=== PATIENT | male | born 1935 ===

== ENCOUNTER 2020-04-01 14:57 | Inpatient (IN) | payer MEDICARE, BC ==
[~2020-04-01] VITALS: Ht 182.8 cm; Wt 87.5 kg
[2020-04-01] MEDS ORDERED: MELATONIN 3 MG TABLET PO PRN (18:15)
[2020-04-01] MEDS ORDERED: polyethylene glycoL POWDER 17 GM (MIRALAX) PACK PO PRN (18:15)
[2020-04-01] MEDS ORDERED: ANTACID SUSP 30 ML UDC (MYLANTA) PO PRN (18:15)
[2020-04-01] MEDS ORDERED: hydrALAZINE (APESOLINE) 20 MG/ML VIAL IV PRN (18:15)
[2020-04-01] MEDS ORDERED: ACETAMINOPHEN 325 MG TABLET PO PRN (18:15)
[2020-04-01] MEDS ORDERED: ONDANSETRON 4 MG (ZOFRAN) ORAL DISSOLVE TAB PO PRN (18:15)
[2020-04-01] MEDS ORDERED: ENOXAPARIN 40 MG/0.4 ML (LOVENOX) SYR SC SCH (18:15)
[2020-04-01] MEDS ORDERED: BISACODYL 10 MG SUPP (DULCOLAX) PR PRN (18:15)
[2020-04-01] MEDS ORDERED: ENOXAPARIN 40 MG/0.4 ML (LOVENOX) SYR ONE (20:50)
[2020-04-01 20:52] VITALS: BP 150/64
[2020-04-01] MEDS: inSUlin ASPART (NovoLOG) 1 UNIT/0.01 ML (CHARGE PER UNIT) SC SCH (21:02)
[2020-04-02] VITALS (16 sets, daily range): BP systolic 130–168; BP diastolic 47–73
[2020-04-02 05:07] LABS: BASOPHILS % (AUTO) 0 % (0-10); EOSINOPHILS % (AUTO) 0 % (0-10); HEMATOCRIT 34 % (40-54); HEMOGLOBIN 11.6 g/dL (13.3-17.7); LYMPHOCYTES # (AUTO) 0.2 10^3/uL (1.0-4.0); LYMPHOCYTES % (AUTO) 3 % (12-44); MEAN CORPUSCULAR HEMOGLOBIN 33 pg (25-34); MEAN CORPUSCULAR HGB CONC 34 g/dL (32-36); MEAN CORPUSCULAR VOLUME 96 fL (80-99); MEAN PLATELET VOLUME 10.2 fL (9.0-12.2); MONOCYTES # (AUTO) 0.3 10^3/uL (0.0-1.0); MONOCYTES % (AUTO) 4 % (0-12); NEUTROPHILS # (AUTO) 7.1 10^3/uL (1.8-7.8); NEUTROPHILS % (AUTO) 92 % (42-75); PLATELET COUNT 215 10^3/uL (130-400); WHITE BLOOD COUNT 7.7 10^3/uL (4.3-11.0)
[2020-04-02 05:28] LABS: ALANINE AMINOTRANSFERASE 33 U/L (0-55); ALBUMIN 3.3 GM/DL (3.2-4.5); ALKALINE PHOSPHATASE 73 U/L (40-136); BILIRUBIN,TOTAL 0.8 MG/DL (0.1-1.0); BUN/CREATININE RATIO 33; CALCIUM 9.1 MG/DL (8.5-10.1); CARBON DIOXIDE 19 MMOL/L (21-32); CHLORIDE 110 MMOL/L (98-107); CREATININE SERUM 1.01 MG/DL (0.60-1.30); GFR ESTIMATED > 60; GLUCOSE 158 MG/DL (70-105); POTASSIUM 3.9 MMOL/L (3.6-5.0); SODIUM 143 MMOL/L (135-145)
[2020-04-02 05:30] LABS: BAND NEUTROPHILS 2 %; LYMPHOCYTES % (MANUAL) 2 %; MONOCYTES % (MANUAL) 3 %; NEUTROPHILS % (MANUAL) 93 %; RBC MORPH NORMAL
[2020-04-02] MEDS: inSUlin ASPART (NovoLOG) 1 UNIT/0.01 ML (CHARGE PER UNIT) SC SCH (06:13)
[2020-04-02] MEDS: ENOXAPARIN 40 MG/0.4 ML (LOVENOX) SYR SC SCH (06:13)
[2020-04-02] MEDS ORDERED: FLU QUAD HIGH DOSE 240 MCG/0.7 ML 2020-21 (FLUZONE) IM ONE (06:45)
--- NOTE | 2020-04-02 11:29 | Occupational Therapy Eval ---
OT Evaluation-General/PLF Medical Diagnosis Admission Date Apr 01, 2020 at 20:31 Medical Diagnosis: COVID+, elevated triponin Onset Date: Apr 01, 2020 Therapy Diagnosis Therapy Diagnosis: decreased ADL status, weakness Precautions Precautions/Isolations: Airborne Isolation, Droplet Isolation, Standard Precautions Referral Physician: Marcelle Referral Reason: Evaluation/Treatment Medical History Additional Medical History ER secondary to SOA/weakness/fever Reviewed History: Yes Social History Home: Multilevel Current Living Status: Significant Other Entry Into Home: Stairs With Railing Steps Into Home: 3 ADL-Prior Level of Function SCALE: Activities may be completed with or without assistive devices. 2-Xeecbsdyji-kjzxlad completes the activity by him/herself with no assistance from a helper. 5-Set-up or Clean-up Assistance-helper sets up or cleans up; patient completes activity. [place] assists only prior to or following the activity. 4-Supervision or Touching Assistance-helper provides verbal cues and/or touching/steadying and/or contact guard assistance as patient completes activity. Assistance may be provided throughout the activity or intermittently. 3-Partial/Moderate Assistance-helper does LESS THAN HALF the effort. Norlina lift s, holds or supports trunk or limbs, but provides less than half the effort. 2-Substantial/Maximal Assistance-helper does MORE THAN HALF the effort. [place] lifts or holds trunk or limbs and provides more than half the effort. 6-Mlzgidxsk-qggwpf does ALL the effort. Patient does none of the effort to complete the activity. Or, the assistance of 2 or more helpers is required for the patient to complete the activity. If activity was not attempted, code reason: 7-Patient Refused. 9-Not Applicable-not attempted and the patient did not perform the activity before the current illness, exacerbation or injury. 10-Not Attempted due to Environmental Limitations-(lack of equipment, weather restraints, etc.). 88-Not Attempted due to Medical Conditions or Safety Concerns. ADL PLOF Comments Pt reports he was independent with ADLs at [facility], he lives in a multistory home with his , where he resides on the 2nd floor. He has a walk in shower, without shower chair. Self Care: Independent Functional Cognition: Independent DME/Equipment: Shower OT Current Status Subjective Pt laying in bed post PT Tx. Pt reports he is very cold and tired, moderate encouragement to participate in OT tx. Mental Status/Objective Patient Orientation: Person, Place, Time, Situation Attachments: Oxygen Current Upper Extremity ROM ~80 degrees shoulder flexion BUEs, PROM to approx 100 degrees but pt reports increased pain Upper Extremity Coordination WFL Upper Extremity Sensation pt denies tingling/numbness BUEs Upper Extremity Strength grossly 2+/5 ADL-Treatment Eating (QC): 5 (Pt states he is able to bring food to his mouth but he does not have the energy to cut food) Toileting Hygiene (QC): 4 (SBA per nurse, pt able to complete clothing management/hygiene) Other Treatments Pt laying in bed, OT introduced self and purpose/benefit of OT. Pt provided information about PLOF and home set up. Pt then participates in UE screen. After performing ROM, pt indicates his arms are very cold and would like to cover up. Pt declined further UE exercise at this time. OT encouraged pt to participate in ADL session, pt indicates he had just used the BSC and does not need to void, and he would just like to rest and warm up. OT informed pt of OT POC while pt is admitted, including increasing safety and independence with ADLs and increasing UE strength/functional endurance. Pt verbalizes understanding. Post OT tx, pt laying in bed, call light in reach and all needs met. Education OT Patient Education: Correct positioning, Energy conservation, Modified ADL techniques, Progress toward Goal/Update tx plan, Purpose of tx/functional activities, Rehab process Teaching Recipient: Patient Teaching Methods: Discussion Response to Teaching: Verbalize Understanding OT Chinese Instructor Goals Assisted Goals Time Frame: Apr 24, 2020 Eating (QC): 6 Oral Hygiene (QC): 6 Toileting Hygiene (QC): 6 Shower/Bathe Self (QC): 6 Upper Body Dressing (QC): 6 Lower Body Dressing (QC): 6 On/Off Footwear (QC): 6 1=Demonstrate adherence to instructed precautions during ADL tasks. 2=Patient will verbalize/demonstrate understanding of assistive devices/modifications for ADL. 3=Patient will improve strength/tolerance for activity to enable patient to perform ADL's. OT Education/Plan Problem List/Assessment Assessment: Decreased Activ Tolerance, Decreased UE Strength, Impaired I ADL's, Impaired Self-Care Skills, Restricted Funct UE ROM Discharge Recommendations Plan/Recommendations: Continue POC Therapy Discharge Recommendati: Home & Family Treatment Plan/Plan of Care Patient would benefit from OT for education, treatment and training to promote independence in ADL's, mobility, safety and/or upper extremity function for ADL's. Plan of Care: ADL Retraining, Functional Mobility, UE Funct Exercise/Act Treatment Duration: Apr 24, 2020 Frequency: 5 times per week Estimated Hrs Per Day: .25 hour per day Rehab Potential: Good Time/GCodes Start Time: 11:10 Stop Time: 11:20 Total Time Billed (hr/min): 10 Billed Treatment Time 1, ANDERS SINGH OT Apr 02, 2020 11:29
--- NOTE | 2020-04-02 11:32 | Physical Therapy Evaluation ---
PT Evaluation-General Medical Diagnosis Admission Date Apr 01, 2020 at 20:31 Medical Diagnosis: Covid 19/ pneumonia Onset Date: Apr 01, 2020 Therapy Diagnosis Therapy Diagnosis: generalized weakness/debility Precautions Precautions/Isolations: Airborne Isolation, Droplet Isolation, Standard Precautions Referral Reason for Referral: Evaluation/Treatment Medical History Current History ER secondary to SOA/weakness/fever Reviewed History: Yes Social History Home: Single Level Current Living Status: Spouse Entry Into Home: Stairs With Railing PT Steps Into Home: 3 Prior Prior Level of Function SCALE: Activities may be completed with or without assistive devices. 4-Sefqpapqlc-hozhynn completes the activity by him/herself with no assistance from a helper. 5-Set-up or Clean-up Assistance-helper sets up or cleans up; patient completes activity. Jefferson assists only prior to or following the activity. 4-Supervision or Touching Assistance-helper provides verbal cues and/or touching/steadying and/or contact guard assistance as patient completes activity. Assistance may be provided throughout the activity or intermittently. 3-Partial/Moderate Assistance-helper does LESS THAN HALF the effort. Jefferson lifts, holds or supports trunk or limbs, but provides less than half the effort. 2-Substantial/Maximal Assistance-helper does MORE THAN HALF the effort. Jefferson lifts or holds trunk or limbs and provides more than half the effort. 9-Qgdrvomdv-babmlr does ALL the effort. Patient does none of the effort to compl ete the activity. Or, the assistance of 2 or more helpers is required for the patient to complete the activity. If activity was not attempted, code reason: 7-Patient Refused. 9-Not Applicable-not attempted and the patient did not perform the activity before the current illness, exacerbation or injury. 10-Not Attempted due to Environmental Limitations-(lack of equipment, weather restraints, etc.). 88-Not Attempted due to Medical Conditions or Safety Concerns. Bed Mobility: 6 Transfers (B,C,W/C): 6 Gait: 6 Stairs: 6 Wheelchair Mobility: 9 Indoor Mobility (Ambulation): Independent Stairs: Independent Prior Devices Use: None PT Evaluation-Current Subjective Patient reluctantly agrees to PT. Objective Patient Orientation: Normal For Age Attachments: Oxygen (6L) ROM/Strength ROM Lower Extremities bilateral LE WFL Strength Lower Extremities 4-/5 grossly bilateral LE Integumentary/Posture Integumentary refer to nursing notes Bowel Incontinence: No Bladder Incontinence: No Posture WFL Neuromuscular (Tone, Coordination, Reflexes) grossly intact Sensory Vision: Functional Hearing: Functional Transfers Roll Left to Right (QC): 6 Sit to Lying (QC): 6 Lying to Sitting/Side of Bed(Q: 6 Sit to Stand (QC): 5 Chair/Dkr-rs-Xgnrc Xfer(QC): 5 Toilet Transfer (QC): 5 was able to toilet self/very slow with mobility Gait Does the Patient Walk?: Yes Mode of Locomotion: Walk Anticipated Mode of Locomotion: Walk Walk 10 feet (QC): 5 Distance: 15' x 2 Gait Assistive Device: FWW Comments/Gait Description very slow, steady Balance Sitting Static: Normal Sitting Dynamic: Normal Standing Static: Normal Standing Dynamic: Normal Assessment/Needs 84 y.o male, will be seen short term by skilled PT to ensure mobility and function continue at SBA or better. Patient declined exercise program. Rehab Potential: Fair PT Chcf Goals Chcf Goals PT Chcf Goals Time Frame: Apr 08, 2020 Roll Left & Right (QC): 6 Sit to Lying (QC): 6 Lying-Sitting on Side/Bed(QC): 6 Sit to Stand (QC): 6 Chair/Vvv-hp-Haeuj Xfer(QC): 6 Toilet Transfer (QC): 6 Does the Patient Walk: Yes Walk 10 feet (QC): 6 Walk 50ft with 2 Turns (QC): 6 PT Plan Problem List Problem List: Activity Tolerance Treatment/Plan Treatment Plan: Continue Plan of Care Treatment Plan: Education, Functional Activity Alexys, Functional Strength, Gait, Safety, Therapeutic Exercise, Transfers Treatment Duration: Apr 08, 2020 Frequency: 5 times per week Estimated Hrs Per Day: .25 hour per day Patient and/or Family Agrees t: Yes Time/GCodes Time In: 1045 Time Out: 1110 Total Billed Treatment Time: 25 Total Billed Treatment 1 visit EVMod 25 min DELMI KIRBY PT Apr 02, 2020 11:32
[2020-04-02] MEDS: cefTRIAXone FOR IV USE 2,000 MG in WATER (STERILE) FOR INJECTION 20 ML IV SCH (12:19)
[2020-04-02] MEDS: AZITHROMYCIN 250 MG TAB (ZITHROMAX) PO SCH (12:19)
--- NOTE | 2020-04-02 14:52 | History & Physical-Hospitalist ---
History of Present Illness HPI/Chief Complaint Alberto Ascencio is an 84-year-old male with past medical history of hypertension, hyperlipidemia, BPH, GERD, who presented to [facility] with shortness of breath. He reports that his symptoms started a couple weeks ago. He reports having a cough. He has had shortness of breath. He has not been eating much. He reports abnormal taste and smell. He has been having fevers. He denies any diarrhea. He denies any chest pain. Source: patient Exam Limitations: no limitations Date Seen 04/02/20 Time Seen by a Provider: 11:30 Attending Physician Mary Galarza MD PCP No,Local Physician Referring Physician Date of Admission Apr 01, 2020 at 20:31 Home Medications & Allergies Home Medications Reviewed patient Home Medication Reconciliation performed by pharmacy medication reconciliations gis technician and/or nursing. Patients Allergies have been reviewed. Allergies Allergies Coded Allergies No Known Drug Allergies (Unverified04/01/20) Past Wvnyojj-Ugvlpv-Vtutef Hx Past Med/Social Hx: Reviewed Nursing Past Med/Soc Hx Review of Systems Constitutional: fever, weakness EENTM: no symptoms reported Respiratory: cough, short of breath Cardiovascular: no symptoms reported Gastrointestinal: no symptoms reported Genitourinary: no symptoms reported Musculoskeletal: no symptoms reported Skin: no symptoms reported Psychiatric/Neurological: No Symptoms Reported Physical Exam Physical Exam Vital Signs Vital Signs - First Documented 04/01/20 04/01/20 20:30 20:52 Temp 36.9 Pulse 72 Resp 18 B/P (MAP) 150/64 (92) Pulse Ox 94 O2 Delivery Nasal Cannula O2 Flow Rate 4.00 Capillary Refill : Less Than 3 Seconds Height, Weight, BMI Height: '" Weight: lbs. oz. kg; 26.66 BMI Method: General Appearance: No Apparent Distress, Chronically ill, Other (fatigued) HEENT: PERRL/EOMI, Pharynx Normal Neck: Normal Inspection, Supple Respiratory: Lungs Clear, Normal Breath Sounds, No Respiratory Distress Cardiovascular: Regular Rate, Rhythm, No Edema, No Murmur Gastrointestinal: Normal Bowel Sounds, Non Tender, Soft Extremity: Normal Inspection, Non Tender, No Pedal Edema Neurologic/Psychiatric: Alert, Oriented x3, No Motor/Sensory Deficits, Normal Mood/Affect Skin: Normal Color, Warm/Dry Results Results/Procedures Labs Laboratory Tests 04/02/20 04:55 Patient resulted labs reviewed. Imaging: Reviewed Imaging Report Assessment/Plan Admission Diagnosis acute respiratory failure due to COVID-19 Admission Status: Inpatient Order (span 2 midnights) Reason for Inpatient Admission: COVID-19 requiring supplemental oxygen Assessment and Plan Acute respiratory failure due to COVID-19 COVID positive at outside hospital Afebrile, WBC normal procalcitonin elevated 0.49 Lactic acid normal Blood cultures drawn at outside hospital Troponin reported as mildly elevated repeat troponin normal 2 CRP significantly elevated d-dimer mildly elevated started on Decadron Convalescent plasma discussed for EUA and patient agrees, ordered Remdesivir not started since 2 weeks post symptoms onset started on Rocephin and azithromycin Elevated troponin troponin reportedly elevated outside hospital Repeat troponin 2 normal Likely lab error HTN HLD BPH GERD Insomnia Resume home meds after med rec completed DVT prophylaxis: Lovenox Diagnosis/Problems Diagnosis/Problems (1) Acute respiratory failure due to COVID-19 Status: Acute (2) Elevated troponin Status: Acute Clinical Quality Measures DVT/VTE Risk/Contraindication: Risk Factor Score Per Nursin RFS Level Per Nursing on Admit: 4+=Very High MARY GALARZA MD Apr 02, 2020 14:52
--- NOTE | 2020-04-02 15:00 | NUR ---
This RN contacted Dr. Ibanez regarding pt respiratory status. Pt was up to commode and when returning to bed pt oxygen level not recovering as quickly as previous times. This RN increase oxygen to 10L HFNC, oxygen level around 87-90%. Requested order for vapotherm. Received verbal order for vapotherm and to change pt to ICU status.
[2020-04-02] MEDS: ONDANSETRON 4 MG/2 ML (SDV) Z0FRAN IV PRN (15:08)
[2020-04-02] MEDS ORDERED: NS IV 500 ML 500 ML ONE (16:27)
--- NOTE | 2020-04-02 16:42 | NUR ---
This RN is unable to scan plasma. Plasma co-verified/co-signed with DARLIN JOHNSTON.
--- NOTE | 2020-04-02 17:15 | NUR ---
This RN contacted pt to give update on pt status change. This RN explained to that pt was receiving plasma now and is on vapotherm. This RN also educated on next steps if pt continues to decline. verbalized understanding.
[2020-04-02] MEDS ORDERED: CETI10TA17 PO (18:38)
[2020-04-02] MEDS ORDERED: TRIA0.2581 PO (18:38)
[2020-04-02] MEDS ORDERED: TMSL.4C PO (18:38)
[2020-04-02] MEDS ORDERED: ATOR10TA66 PO (18:38)
[2020-04-02] MEDS ORDERED: OLME40TA12 PO (18:38)
[2020-04-02] MEDS ORDERED: POTA8TAB2 PO (18:38)
[2020-04-02] MEDS ORDERED: HYDR-3817 PO (18:38)
[2020-04-02] MEDS ORDERED: LANS30CA PO (18:38)
[2020-04-02] MEDS ORDERED: PREG150C46 PO (18:38)
[2020-04-02] MEDS ORDERED: AMLO5TAB9 PO (18:38)
[2020-04-02] MEDS ORDERED: CATHETER FLUSH 10 ML SYR IV PRN (19:15)
[2020-04-02] MEDS: LORATADINE (CLARITIN) 10 MG TAB PO SCH (20:51)
[2020-04-02] MEDS: TEMAZEPAM 15 MG (RESTORIL) CAP PO SCH (20:51)
[2020-04-02] MEDS: PREGABALIN 150 MG (LYRICA) CAPSULE PO SCH (20:51)
[2020-04-02] MEDS: CATHETER FLUSH 10 ML SYR IV SCH (20:52)
[2020-04-02] MEDS ORDERED: NON-FORMULARY MEDICATION 1 EA EA (Cetirizine HCl 10 MG) PO SCH (21:00)
[2020-04-02] MEDS ORDERED: TRIAZOLAM 0.25 MG PO SCH (21:00)
[2020-04-03] VITALS (29 sets, daily range): BP systolic 111–148; BP diastolic 50–86
[2020-04-03 03:37] LABS: BASOPHILS % (AUTO) 0 % (0-10); EOSINOPHILS % (AUTO) 0 % (0-10); HEMATOCRIT 33 % (40-54); HEMOGLOBIN 10.9 g/dL (13.3-17.7); LYMPHOCYTES # (AUTO) 0.3 10^3/uL (1.0-4.0); LYMPHOCYTES % (AUTO) 2 % (12-44); MEAN CORPUSCULAR HEMOGLOBIN 32 pg (25-34); MEAN CORPUSCULAR HGB CONC 33 g/dL (32-36); MEAN CORPUSCULAR VOLUME 98 fL (80-99); MEAN PLATELET VOLUME 10.6 fL (9.0-12.2); MONOCYTES # (AUTO) 0.6 10^3/uL (0.0-1.0); MONOCYTES % (AUTO) 5 % (0-12); NEUTROPHILS # (AUTO) 11.1 10^3/uL (1.8-7.8); NEUTROPHILS % (AUTO) 92 % (42-75); PLATELET COUNT 279 10^3/uL (130-400); WHITE BLOOD COUNT 12.1 10^3/uL (4.3-11.0)
[2020-04-03 03:55] LABS: ALBUMIN 3.5 GM/DL (3.2-4.5); CHLORIDE 109 MMOL/L (98-107); POTASSIUM 4.2 MMOL/L (3.6-5.0); SODIUM 144 MMOL/L (135-145)
[2020-04-03 03:56] LABS: CALCIUM 9.4 MG/DL (8.5-10.1)
[2020-04-03 03:57] LABS: GLUCOSE 147 MG/DL (70-105); TOTAL PROTEIN 6.9 GM/DL (6.4-8.2)
[2020-04-03 03:58] LABS: CARBON DIOXIDE 24 MMOL/L (21-32)
[2020-04-03 03:59] LABS: BILIRUBIN,TOTAL 0.5 MG/DL (0.1-1.0)
[2020-04-03 04:00] LABS: PHOSPHORUS 3.9 MG/DL (2.3-4.7)
[2020-04-03 04:01] LABS: ALKALINE PHOSPHATASE 76 U/L (40-136); CREATININE SERUM 1.05 MG/DL (0.60-1.30); GFR ESTIMATED > 60
[2020-04-03 04:02] LABS: BUN/CREATININE RATIO 38
[2020-04-03 04:03] LABS: MAGNESIUM 2.2 MG/DL (1.6-2.4)
[2020-04-03 04:04] LABS: ALANINE AMINOTRANSFERASE 34 U/L (0-55)
[2020-04-03] MEDS: POTASSIUM CL 10MEQ/50ML IVPB 50 ML IV SCH (04:18)
[2020-04-03] MEDS: KCL 20 MEQ TAB (K-DUR) PO SCH (04:18)
[2020-04-03] MEDS: MAGNESIUM 1 GM/100 ML IVPB 100 ML IV SCH (04:18)
--- NOTE | 2020-04-03 04:56 | Pulmonary Consultation ---
History of Present Illness History of Present Illness Time Seen by Provider: 04:51 Date of Admission Allergies and Home Medications Allergies Coded Allergies: No Known Drug Allergies (Unverified , 04/01/20) Home Medications Amlodipine Besylate 5 Mg Tablet, 5 MG PO DAILY, (Reported) Atorvastatin Calcium 10 Mg Tablet, 10 MG PO HS, (Reported) Cetirizine HCl 10 Mg Tablet, 10 MG PO HS, (Reported) Hydrocodone/Acetaminophen 1 Each Tablet, 7.5-325 MG PO PRN, (Reported) Lansoprazole 30 Mg Capsule.dr, 30 MG PO DAILY, (Reported) Olmesartan Medoxomil 40 Mg Tablet, 40 MG PO DAILY, (Reported) Potassium Chloride 8 Meq Tablet.er, 8 MEQ PO HS, (Reported) Pregabalin 150 Mg Capsule, 150 MG PO BID, (Reported) Tamsulosin HCl 0.4 Mg Cap, 0.8 MG PO DAILY, (Reported) Triazolam 0.25 Mg Tablet, 0.25 MG PO HS, (Reported) Past Mwbnwyg-Wrypkt-Lbbjyf Hx Past Med/Social Hx: Reviewed Nursing Past Med/Soc Hx Review of Systems Time Seen by Provider: 04:56 Sepsis Event Evaluation Height, Weight, BMI Height: '" Weight: lbs. oz. kg; 26.66 BMI Method: Exam Exam Vital Signs Date Time Temp Pulse Resp B/P (MAP) Pulse Ox O2 Delivery O2 Flow Rate FiO2 04/03/20 04:26 Vapotherm 40.00 80 04/03/20 04:00 71 124/66 (85) 93 Vapotherm 40.00 80.00 04/03/20 03:01 36.7 Vapotherm 40.00 70.00 04/03/20 03:00 85 26 134/63 (86) 93 Vapotherm 40.00 80.00 04/03/20 02:32 95 Vapotherm 40.00 80 04/03/20 02:00 72 24 126/67 (86) 96 Vapotherm 40.00 80.00 04/03/20 01:00 75 04/03/20 01:00 72 34 119/60 (79) 97 Vapotherm 40.00 80.00 04/03/20 00:00 83 32 126/67 (86) 99 Vapotherm 40.00 80.00 04/02/20 23:17 Vapotherm 40.00 80 04/02/20 23:15 36.6 Vapotherm 40.00 80.00 04/02/20 23:00 100 38 130/61 (84) 91 Vapotherm 40.00 70.00 04/02/20 22:26 95 Vapotherm 40.00 70 04/02/20 22:00 89 18 139/60 (86) 94 Vapotherm 40.00 70.00 04/02/20 21:00 90 32 148/47 (80) 95 Vapotherm 40.00 70.00 04/02/20 20:57 37.1 Vapotherm 40.00 70.00 04/02/20 20:00 93 18 144/67 (92) 94 Vapotherm 40.00 85.00 04/02/20 20:00 Vapotherm 40.00 70 04/02/20 19:00 96 04/02/20 19:00 97 27 141/71 (94) 95 Vapotherm 40.00 85.00 04/02/20 18:44 93 Vapotherm 40.00 70 04/02/20 18:04 36.8 92 22 142/57 93 Vapotherm 40.00 70 04/02/20 18:00 91 32 142/57 (85) 93 Vapotherm 40.00 85.00 04/02/20 17:00 36.6 96 20 152/70 95 Vapotherm 40.00 70 04/02/20 17:00 94 19 152/70 (97) 94 Vapotherm 40.00 85.00 04/02/20 16:53 Vapotherm 40.00 85.00 04/02/20 16:52 36.7 91 28 150/70 High Flow N/C 40.00 85 04/02/20 16:46 36.8 95 27 158/68 97 Vapotherm 40.00 95 04/02/20 16:33 Vapotherm 40.00 95.00 04/02/20 16:00 103 161/69 (99) 83 Vapotherm 40.00 100.00 04/02/20 16:00 89 High Flow N/C 10.00 04/02/20 15:38 Vapotherm 40.00 100.00 04/02/20 15:12 36.8 91 19 168/73 (104) 91 High Flow N/C 10.00 04/02/20 13:47 Nasal Cannula 6.00 04/02/20 13:17 92 04/02/20 12:00 90 Nasal Cannula 6.00 04/02/20 12:00 36.2 97 18 160/68 (98) 93 Nasal Cannula 6.00 04/02/20 09:00 90 Nasal Cannula 6.00 04/02/20 07:51 90 Nasal Cannula 6.00 04/02/20 07:49 36.8 91 20 168/66 (100) 90 Nasal Cannula 6.00 04/02/20 07:21 79 I & O 04/03/20 07:00 Intake Total 370 ml Output Total 225 ml Balance 145 ml Height & Weight Height: '" Weight: lbs. oz. kg; 26.66 BMI Method: General Appearance: No Apparent Distress, Chronically ill, Other (fatigued) HEENT: PERRL/EOMI, Pharynx Normal Neck: Normal Inspection, Supple Respiratory: Lungs Clear, Normal Breath Sounds, No Respiratory Distress Cardiovascular: Regular Rate, Rhythm, No Edema, No Murmur Capillary Refill: Less Than 3 Seconds Extremity: Normal Inspection, Non Tender, No Pedal Edema Neurologic/Psychiatric: Alert, Oriented x3, No Motor/Sensory Deficits, Normal Mood/Affect Skin: Normal Color, Warm/Dry Results Lab Laboratory Tests 04/02/20 04:55 04/03/20 03:16 Assessment/Plan Assessment/Plan Acute respiratory failure due to COVID-19 -Decadron -- increase 20mg IV daily -S/p Convalescent plasma -- Will repeat dose -Awake proning as tolerated -Remdesivir not started since 2 weeks post symptoms onset Pneumonia - Rocephin and azithromycin HTN HLD BPH GERD Insomnia Resume home meds after med rec completed DVT prophylaxis: Lovenox LUCERO VINCENT DO Apr 03, 2020 04:56
[2020-04-03] MEDS: CATHETER FLUSH 10 ML SYR IV SCH ×3 (05:43→21:04)
[2020-04-03] MEDS: dexAMETHasone 6 MG TAB (DECADRON) PO SCH (05:43)
[2020-04-03] MEDS ORDERED: cefTRIAXone FOR IV USE 2,000 MG in WATER (STERILE) FOR INJECTION 20 ML IV SCH (08:00)
[2020-04-03] MEDS: ENOXAPARIN 40 MG/0.4 ML (LOVENOX) SYR SC SCH (08:31)
[2020-04-03] MEDS: VALSARTAN 160 MG (DIOVAN) TABLET PO SCH (08:32)
[2020-04-03] MEDS: AZITHROMYCIN 250 MG TAB (ZITHROMAX) PO SCH (08:32)
[2020-04-03] MEDS: PANTOPRAZOLE 40 MG (PROTONIX) TAB PO SCH (08:33)
[2020-04-03] MEDS: amLODIPine 5 MG (NORVASC) TAB PO SCH (08:33)
[2020-04-03] MEDS: TAMSULOSIN 0.4 MG (FLOMAX) CAP PO SCH (08:33)
[2020-04-03] MEDS: PREGABALIN 150 MG (LYRICA) CAPSULE PO SCH ×2 (08:33→21:03)
[2020-04-03] MEDS: cefTRIAXone FOR IV USE 2,000 MG in WATER (STERILE) FOR INJECTION 20 ML IV SCH (08:34)
[2020-04-03] MEDS ORDERED: NON-FORMULARY MEDICATION 1 EA EA (Lansoprazole 30 MG) PO SCH (09:00)
[2020-04-03] MEDS ORDERED: NON-FORMULARY MEDICATION 1 EA EA (Olmesartan Medoxomil (Benicar) 40 MG) PO SCH (09:00)
--- NOTE | 2020-04-03 09:49 | Occ Therapy Progress Note ---
Therapy Progress Note Pt transferred to ICU, requiring a higher level of care. New OT orders needed to continue therapy due to change in medical status. ANDERS ARCOS OT Apr 03, 2020 09:49
[2020-04-03] MEDS: RT-ALBUTEROL INHALER HFA (VENTOLIN HFA) 18 GM IH SCH ×4 (09:57→19:03)
--- NOTE | 2020-04-03 11:55 | Physical Therapy Progress Note ---
Therapy Progress Note Patient transferred to ICU, PT will need new orders to continue treatment, nurse notified of this. CHELO JONES PT Apr 03, 2020 11:55
[2020-04-03] MEDS ORDERED: NS (IVPB) 250 ML ONE (15:23)
--- NOTE | 2020-04-03 15:30 | NUR ---
Normal Saline pulled for administering FFP.
[2020-04-03 16:49] LABS: ABG OXYGEN SATURATION 91 % (94-100); ABG PCO2 40 MMHG (35-45); ABG PH 7.44 (7.37-7.43); ABG PO2 64 MMHG (79-93); ABG TCO2 28.3 MMOL/L (21.0-31.0)
[2020-04-03 16:52] LABS: ALLENS TEST POSITIVE; INSPIRED O2 100%; PATIENT TEMP 36.6; VENTILATOR NO
--- NOTE | 2020-04-03 20:03 | Diagnostic Imaging Report ---
INDICATION: Covid positive. TECHNIQUE: Single view chest, 7:50 p.m. CORRELATION STUDY: None. FINDINGS: Heart size is borderline enlarged. Mediastinum with prominent likely tortuous course of the thoracic aorta. Scattered somewhat groundglass opacities throughout both lung love. There does appear to be perhaps slightly more consolidated left mid lung. IMPRESSION: Bilateral pulmonary infiltrate-like densities consistent with history of Covid. There does appear to be slightly more focal consolidated appearance developed in the left mid lung. Dictated by: Dictated on workstation # [id number]
[2020-04-03 20:09] LABS: ABG BASE EXCESS 1.7 MMOL/L (-2.5-2.5); ABG OXYGEN SATURATION 95 % (94-100); ABG PCO2 37 MMHG (35-45); ABG PH 7.45 (7.37-7.43); ABG PO2 78 MMHG (79-93); ABG TCO2 26.6 MMOL/L (21.0-31.0)
[2020-04-03 20:13] LABS: ALLENS TEST YES-POS; INSPIRED O2 100% BIPAP; VENTILATOR NO
[2020-04-03 20:14] LABS: PATIENT TEMP 36.7
--- NOTE | 2020-04-03 21:00 | NUR ---
THIS RN TO PTS BEDSIDE TO LET AND SON FACETIME WITH PT. ASKED PT "IF YOUR OXYGEN GETS TOO LOW DO YOU WANT THE TUBE DOWN YOUR THROAT" PT REPLIED "YES I WANT YOU TO DO EVERYTHING YOU CAN". THIS RN WAS ABLE TO HELP PT COMMUNICATE WITH AND SON.
[2020-04-03] MEDS: TEMAZEPAM 15 MG (RESTORIL) CAP PO SCH (21:03)
[2020-04-03] MEDS: LORATADINE (CLARITIN) 10 MG TAB PO SCH (21:03)
--- NOTE | 2020-04-03 22:00 | NUR ---
THIS RN NOTICED THAT PTS O2 WAS STEADILY DROPPING. BY THE TIME I WAS ABLE TO GET INTO PTS ROOM PTS O2 WAS 70%. THIS RN NOTICED THAT PTS BIPAP TUBING HAD BECOME DISCONNECTED. I WAS ABLE TO RECONNECT TUBING. RT EMILEE TO PTS ROOM WELL. THIS RN SPOKE WITH EICU DOCTOR AND INFORMED HER OF ABOVE FINDINGS. EICU DOCTOR AGREED TO BIPAP SETTING CHANGES WITH RT. ALSO RECEIVED ORDERS TO TRY AND PRONE PT IF TOLERATED. THIS RN AND RT EMILEE HELPED PT TO PRONE. PT UNABLE TO TOLERATE LAYING ON ABDOMEN BUT PT ABLE TO TOLERATE LAYING ON HIS LEFT SIDE. PTS O2 SATURATION WENT UP TO 95%. WILL CONTINUE TO MONITOR PT AT THIS TIME.
--- NOTE | 2020-04-03 23:30 | NUR ---
THIS RN NOTICED PTS O2 LEVEL STARTED STEADILY DROPPING AGAIN. ONCE IN THE ROOM PTS O2 WAS IN THE 70's AGAIN. PT HAD TAKEN BIPAP OFF. PT CONFUSED AT THIS TIME. PT REFUSING TO PUT BIPAP BACK ON STATING "I CANT WEAR IT ANYMORE". THIS RN EDUCATED PT ON THE NEED TO WEAR THE BIPAP, THAT IF PT DIDNT WEAR THE BIPAP IT COULD RESULT IN INTUBATION OR . PT STATES "I DONT CARE ILL JUST THEN". I EDUCATED PT THAT JUST AN HOUR BEFORE WHEN HE WASNT CONFUSED THAT HE STATED HE WANTED USE TO DO EVERYTHING WE COULD TO SAVE HIS LIFE. PT AGREED WITH THIS RN AND PT AGREED TO PUT BIPAP BACK ON FACE. PTS O2 SATURATION INCREASED TO 90%. PT REFUSING TO PRONE AT THIS TIME. WILL CONTINUE TO MONITOR PT. EICU INFORMED OF ABOVE FINDINGS. ORDERS RECEIVED TO PRONE PT TOLERATED.
[2020-04-04] VITALS (18 sets, daily range): BP systolic 108–152; BP diastolic 45–75
[2020-04-04] MEDS ORDERED: DexMEDEtomidine PRE MIX 100 ML IV ONE (01:30)
[2020-04-04] MEDS: DexMEDEtomidine PRE MIX 100 ML IV SCH ×2 (01:45→09:38)
[2020-04-04] MEDS: RT-ALBUTEROL INHALER HFA (VENTOLIN HFA) 18 GM IH SCH ×2 (02:08→06:49)
[2020-04-04] MEDS: ONDANSETRON 4 MG/2 ML (SDV) Z0FRAN IV PRN (02:27)
--- NOTE | 2020-04-04 02:30 | NUR ---
THIS RN WENT INTO PTS ROOM TO DRAW ABG. WHILE DRAWING PTS ABG PT STARTED HAVING A COUGHING FIT THAT CAUSED HIM TO VOMIT GREEN EMESIS. EMESIS WAS CLEANED OUT OF MASK AND PLACED BACK ON PT AFTER PT STATED HE WAS OKAY. ZOFRAN GIVEN TO PT. PTS O2 DECREASED TO 80'S ON BIPAP 100%FIO2. RT CALLED TO ROOM WITH ANOTHER RN. THIS RN SPOKE WITH EICU DOCTOR AND INFORMED HER OF ABOVE FINDINGS. ORDERS RECEIVED TO GO AHEAD WITH INTUBATION. ROOM AND PT PREPPED FOR INTUBATION. ANAESTHESIA CALLED IN BY FLIGHT DATA TECHNICIAN. PTS O2 STARTED TO SLOWLY INCREASE WHILE WAITING ON ANAESTHESIA. ONCE ANAESTHESIA ARRIVED PTS O2 SATS 95% ON BIPAP 100%FIO2. EICU DOCTOR CAMERA'D IN AND STATED "PT LOOKS LIKE HE IS DOING MUCH BETTER, LETS HOLD OF ON INTUBATION". THIS RN STATED "DO YOU STILL WANT US TO HOLD OFF BC OF PTS WORK OF BREATHING AND RESPIRATORY RATE IN THE 40's". EICU DOCTOR STILL AGREES TO HOLD OFF ON INTUBATION FOR NOW. WILL CONTINUE TO MONITOR PT.
[2020-04-04] MEDS ORDERED: PROPOFOL DRIP (ICU) 100 ML IV ONE (02:36)
[2020-04-04 02:38] LABS: ABG BASE EXCESS 2.4 MMOL/L (-2.5-2.5); ABG OXYGEN SATURATION 89 % (94-100); ABG PCO2 39 MMHG (35-45); ABG PH 7.44 (7.37-7.43); ABG PO2 68 MMHG (79-93); ABG TCO2 27.1 MMOL/L (21.0-31.0)
[2020-04-04 02:42] LABS: ALLENS TEST YES-POS; INSPIRED O2 100% BIPAP; PATIENT TEMP 37.9; VENTILATOR NO
[2020-04-04] MEDS: PROPOFOL DRIP (ICU) 100 ML IV SCH ×2 (03:40→12:06)
[2020-04-04 04:14] LABS: ALANINE AMINOTRANSFERASE 32 U/L (0-55); ALBUMIN 3.3 GM/DL (3.2-4.5); ALKALINE PHOSPHATASE 73 U/L (40-136); BILIRUBIN,TOTAL 0.7 MG/DL (0.1-1.0); BUN/CREATININE RATIO 42; CALCIUM 9.1 MG/DL (8.5-10.1); CARBON DIOXIDE 22 MMOL/L (21-32); CHLORIDE 109 MMOL/L (98-107); CREATININE SERUM 0.95 MG/DL (0.60-1.30); GFR ESTIMATED > 60; GLUCOSE 148 MG/DL (70-105); PHOSPHORUS 2.6 MG/DL (2.3-4.7); POTASSIUM 3.8 MMOL/L (3.6-5.0); SODIUM 145 MMOL/L (135-145); TOTAL PROTEIN 6.6 GM/DL (6.4-8.2); TRIGLYCERIDES 93 MG/DL (<150)
[2020-04-04] MEDS: KCL 20 MEQ TAB (K-DUR) PO SCH (05:21)
[2020-04-04] MEDS: MAGNESIUM 1 GM/100 ML IVPB 100 ML IV SCH (05:21)
[2020-04-04] MEDS: POTASSIUM CL 10MEQ/50ML IVPB 50 ML IV SCH (05:21)
[2020-04-04] MEDS: CATHETER FLUSH 10 ML SYR IV SCH ×2 (05:22→14:00)
[2020-04-04] MEDS ORDERED: VANCOMYCIN INJECTION 0.1 MG in NS (IVPB) 250 ML IV SCH (07:15)
[2020-04-04 07:18] LABS: BASOPHILS % (AUTO) 0 % (0-10); EOSINOPHILS % (AUTO) 0 % (0-10); HEMATOCRIT 34 % (40-54); HEMOGLOBIN 11.4 g/dL (13.3-17.7); LYMPHOCYTES # (AUTO) 0.2 10^3/uL (1.0-4.0); LYMPHOCYTES % (AUTO) 2 % (12-44); MEAN CORPUSCULAR HEMOGLOBIN 33 pg (25-34); MEAN CORPUSCULAR HGB CONC 33 g/dL (32-36); MEAN CORPUSCULAR VOLUME 98 fL (80-99); MONOCYTES # (AUTO) 0.5 10^3/uL (0.0-1.0); MONOCYTES % (AUTO) 5 % (0-12); NEUTROPHILS # (AUTO) 10.3 10^3/uL (1.8-7.8); NEUTROPHILS % (AUTO) 93 % (42-75); PLATELET COUNT 262 10^3/uL (130-400); WHITE BLOOD COUNT 11.1 10^3/uL (4.3-11.0)
[2020-04-04] MEDS ORDERED: VANCOMYCIN 1,750 MG/NS 500 ML IVPB IV NR ×2 (07:23)
--- NOTE | 2020-04-04 07:26 | NUR ---
PTD Vancomycin - Loading dose of 1750mg over 2 hours x 1 as soon as possible, then start 1250mg every 12 hours, 0800 & 2000. Trough ordered for Monday, 04/06, @ 0700.
[2020-04-04 07:41] LABS: BAND NEUTROPHILS 6 %; LYMPHOCYTES % (MANUAL) 2 %; MONOCYTES % (MANUAL) 3 %; NEUTROPHILS % (MANUAL) 89 %; RBC MORPH NORMAL
[2020-04-04] MEDS ORDERED: CEFEPIME INJECTION 2,000 MG in WATER (STERILE) FOR INJECTION 20 ML IV SCH (09:00)
[2020-04-04] MEDS: amLODIPine 5 MG (NORVASC) TAB PO SCH (09:12)
[2020-04-04] MEDS: PANTOPRAZOLE 40 MG (PROTONIX) TAB PO SCH (09:12)
[2020-04-04] MEDS: TAMSULOSIN 0.4 MG (FLOMAX) CAP PO SCH (09:12)
[2020-04-04] MEDS: VALSARTAN 160 MG (DIOVAN) TABLET PO SCH (09:12)
[2020-04-04] MEDS: PREGABALIN 150 MG (LYRICA) CAPSULE PO SCH (09:12)
[2020-04-04] MEDS: dexAMETHasone 6 MG TAB (DECADRON) PO SCH (09:12)
[2020-04-04] MEDS: ENOXAPARIN 40 MG/0.4 ML (LOVENOX) SYR SC SCH (09:13)
[2020-04-04] MEDS ORDERED: dexAMETHasone INJECTION 20 MG in NS (IVPB) 50 ML IV SCH (11:15)
--- NOTE | 2020-04-04 12:57 | Progress Note - Hospitalist ---
Subjective HPI/CC On Admission Date Seen by Provider: Apr 04, 2020 Time Seen by Provider: 10:15 Alberto Ascencio is an 84-year-old male with past medical history of hypertension, hyperlipidemia, BPH, GERD, who presented to [facility] with shortness of breath. He reports that his symptoms started a couple weeks ago. He reports h aving a cough. He has had shortness of breath. He has not been eating much. He reports abnormal taste and smell. He has been having fevers. He denies any diarrhea. He denies any chest pain. Subjective/Events-last exam He is wearing BiPap. He is lethargic. He is short of breath. He feels weak. This afternoon I returned to his room. He had taken his BiPap off and told nursing staff that he didn't want to continue this way and wants to be allowed to . He was oriented to self, place, city, date, and situation. He was previously full code. He was calmed down and we were able to put the BiPap back on. I called his and son and they agreed to transition him to DNR/DNI and will make him comfort measures only. They are in [place] and would like to come over to see him before the BiPap is removed. Objective Exam Vital Signs Vital Signs Date Time Temp Pulse Resp B/P (MAP) Pulse Ox O2 Delivery O2 Flow Rate FiO2 04/04/20 12:45 69 04/04/20 12:01 NIV Bilevel 100 04/04/20 12:00 36.8 35 128/55 (79) 92 04/04/20 12:00 100.00 Capillary Refill : Less Than 3 Seconds General Appearance: WD/WN, Severe Distress (tachypnea) HEENT: PERRL/EOMI, Other (wearing BiPAP mask) Respiratory: Respiratory Distress (tachypnea), Other (wearing BiPAP) Cardiovascular: Regular Rate, Rhythm, No Edema, No Murmur Gastrointestinal: Normal Bowel Sounds, Non Tender, Soft Extremity: Normal Inspection, Non Tender, No Pedal Edema Neurologic/Psychiatric: No Motor/Sensory Deficits, Other (lethargic, unable to talk due to BiPAP) Skin: Normal Color, Warm/Dry Results/Procedures Lab Laboratory Tests 04/04/20 03:16 04/04/20 03:35 Patient resulted labs reviewed. Imaging: Reviewed Imaging Report Assessment/Plan Assessment and Plan Assess & Plan/Chief Complaint Acute respiratory failure due to COVID-19 Advanced age Poor prognosis receiving Decadron s/p convalescent plasma 2 Outside of window for Remdesivir requiring BiPAP 100% requesting to withdraw care family notified, agrees to DO NOT RESUSCITATE/DO NOT INTUBATE on her way to hospital assisted by her son, would like to be at bedside to withdraw care HTN HLD BPH GERD Insomnia DVT prophylaxis: Lovenox Diagnosis/Problems Diagnosis/Problems (1) Acute respiratory failure due to COVID-19 Status: Acute (2) Advanced age Status: Chronic (3) Poor prognosis Status: Acute Clinical Quality Measures DVT/VTE Risk/Contraindication: Risk Factor Score Per Nursin RFS Level Per Nursing on Admit: 4+=Very High NADIR GALARZA MD Apr 04, 2020 12:57
--- NOTE | 2020-04-04 13:00 | Physical Therapy Progress Note ---
Therapy Progress Note PT will continue to monitor patient for progress. Therapy will be initiated when patient is off of the vent and responsive. DAVID MCCLELLAND PT Apr 04, 2020 13:00
--- NOTE | 2020-04-04 13:00 | NUR ---
PT REMOVED BIPAP MASK. PT STATED THAT HE DID NOT WANT TO WEAR THE MASK ANYMORE. IT WAS EXPLAINED TO PT THAT HE WOULD NEED INTUBATED IF HE DIDN'T WEAR THE MASK. PT STATED THAT HE WANTED TO . PT WAS ASKED QUESTIONS TO VERIFY MENTAL STATUS. PT WAS A/OX4. PT STATED THAT HE DID NOT WANT TO BE INTUBATED AND DID NOT WANT TO WEAR THE MASK ANYMORE. PT STATED THAT HE UNDERSTOOD THAT HE WOULD BY REFUSING TO WEAR THE MASK OR BE INTUBATED. PT VERBALIZED UNDERSTANDING. CONTACTED PHYSICIAN AND ADVISED OF PT REQUESTS. PHYSICIAN CONTACTED FAMILY AND ADVISED FAMILY OF PT WISHES. FAMILY ELECTED TO MAKE PT DNR/DNI AND WOULD COME TO SEE HIM AND DECIDE FROM THERE.
--- NOTE | 2020-04-04 14:25 | NUR ---
PT FAMILY ARRIVED. PT ASKED TO TAKE OFF BIPAP. EXPLAINED TO FAMILY THAT HIS O2 LEVEL WOULD DROP QUICKLY. PT FAMILY VERBALIZED UNDERSTANDING. REMOVED MASK LEFT ROOM TO GIVE FAMILY TIME WITH PT.
[2020-04-04] MEDS ORDERED: ACETAMINOPHEN 650 MG SUPP (TYLENOL) PR PRN (16:30)
[2020-04-04] MEDS ORDERED: BISACODYL 10 MG SUPP (DULCOLAX) PR PRN (16:30)
[2020-04-04] MEDS ORDERED: PROMETHAZINE INJ 25 MG/ML (PHENERGAN) AMP IVP PRN (16:30)
[2020-04-04] MEDS ORDERED: SALIVA STIMULANT MOUTH SPRAY (BIOTENE) 1.5 OZ MM PRN (16:30)
[2020-04-04] MEDS ORDERED: LORazepam INJ 2 MG/ML (ATIVAN) VIAL IVP PRN (16:30)
[2020-04-04] MEDS ORDERED: RT-ALBUTEROL/IPRATROPIUM 3 ML (DUONEB) VIAL INH PRN (16:30)
[2020-04-04] MEDS ORDERED: ARTIFICAL TEARS 0.4 ML UNIT DOSE (REFRESH PLUS) OU PRN (16:30)
[2020-04-04] MEDS ORDERED: ONDANSETRON 4 MG/2 ML (SDV) Z0FRAN IVP PRN (16:30)
[2020-04-04] MEDS ORDERED: morphine INJ 4 MG/ML 1 ML (VIAL/SYRINGE) IV PRN (16:30)
[2020-04-04] MEDS ORDERED: GLYCOPYRROLATE 0.2 MG/ML (ROBINUL) 2 ML VIAL IV PRN (16:30)
--- NOTE | 2020-04-04 17:54 | NUR ---
PT AT 1737. VERIFIED CESSATION OF BREATHING AND HR WITH ELIANA SAEED. ADVISED HOSPITALIST. ATTEMPTED TO CONTACT JUDICIAL ASSISTANT WITHOUT SUCCESS. CONTACTED [facility], AWAITING CALLBACK AT THIS TIME.
--- NOTE | 2020-04-04 19:51 | NUR ---
PT PICKED UP BY [facility]
[2020-04-04] MEDS ORDERED: VANCOMYCIN 1250 MG/NS 250 ML IVPB IV SCH ×2 (20:00)
[2020-04-05] MEDS ORDERED: PANTOPRAZOLE 40 MG (PROTONIX) VIAL IV SCH (09:00)
[2020-04-06] MEDS ORDERED: TROUGH ORDER-PHARMACY XX NR (07:00)
== END 2020-04-04 19:53 | disposition expired | DRG 177 ==
LOC: CSD 20:31 → ICU 04-02 16:03
PROVIDERS: ADMIT Internal Medicine; ATTEND Internal Medicine
PROC: XW13325 Transfusion of Convalescent Plasma (Nonautologous) into Peripheral Vein, Percutaneous Approach, New Technology Group 5 (ICD-10-PCS; principal; 2020-04-02)
DX: U07.1 COVID-19 (principal); J96.00 Acute respiratory failure, unspecified whether with hypoxia or hypercapnia; J12.89 Other viral pneumonia; I10 Essential (primary) hypertension; E78.5 Hyperlipidemia, unspecified; K21.9 Gastro-esophageal reflux disease without esophagitis; N40.0 Benign prostatic hyperplasia without lower urinary tract symptoms; G47.00 Insomnia, unspecified; R79.89 Other specified abnormal findings of blood chemistry
CPT/HCPCS: 36415; 36600; 71045; 80053; 82728; 82805; 83735; 84100; 84145; 84478; 84484; 85007; 85025; 85027; 85379; 86141; 86850; 86900; 86901; 94640; 94660; 94760